=== PATIENT | female | born 1975 | race African-American/Black ===

== ENCOUNTER 2017-04-08 00:32 | Emergency (ER) | END 2017-04-08 03:40 | disposition home or self-care (01) ==

== ENCOUNTER 2018-08-15 18:50 | Emergency (ER) | payer OTHER ==
[~2018-08-15] VITALS: Wt 68.1 kg
[~2018-08-15 18:50] MED LIST: AMOX1TAB10 PO; IBUP-1542 PO
[2018-08-15 19:25] VITALS: BP 128/75; PULSE 75; RESP 18
[2018-08-15] MEDS ORDERED: IBUPROFEN 600 MG TAB PO ONE (20:30)
[2018-08-15] MEDS ORDERED: IBUP-1542 PO (21:55)
--- NOTE | 2018-08-15 22:00 | ERD ---
ER Documentation Chief Complaint Chief Complaint L ANKLE PAIN S/P TRIP TODAY HPI Patient is a 43-year-old female presents the ER for concerns of left ankle pain after she tripped earlier today. Patient states she was going down the stairs when she rolled her ankle. Patient denies head injury. Patient denies any p revious fractures or dislocations to the affected extremity. ROS All systems reviewed and are negative except as per history of present illness. Medications Home Meds Active Scripts Ibuprofen* (Motrin*) 600 Mg Tab, 600 MG PO Q6, #30 TAB Prov:JUANIS CRABTREE PA-C 08/15/18 Ibuprofen* (Motrin*) 600 Mg Tab, 600 MG PO Q6H PRN for PAIN AND OR ELEVATED TEMP, #30 TAB Prov:SHAWN MILLER NP 04/08/17 Amoxicillin/Potassium Clav (Amox-Clav 875-125 mg Tablet) 875-125 mg Tab, 1 TAB PO BID for 10 Days, #20 TAB Prov:SHAWN MILLER NP 04/08/17 Allergies Allergies: Coded Allergies: No Known Allergy (Unverified Allergy, Unknown, 04/17/06) PMhx/Soc History of Surgery: No Anesthesia Reaction: No Hx Neurological Disorder: No Hx Respiratory Disorders: No Hx Cardiac Disorders: No Hx Psychiatric Problems: No Hx Miscellaneous Medical Probl: No Hx Alcohol Use: No Hx Substance Use: No Hx Tobacco Use: No Smoking Status: Never smoker FmHx Family History: No diabetes Physical Exam Vitals Vital Signs Date Temp Pulse Resp B/P (MAP) Pulse Ox O2 O2 Flow FiO2 Time Delivery Rate 08/15/18 99.0 75 18 128/75 100 19:25 (92) Physical Exam GENERAL: Well-developed, well-nourished female. Appears in no acute distress. HEAD: Normocephalic, atraumatic. EYES: Pupils are equally reactive bilaterally. EOMs grossly intact. No conjunctival erythema. ENT: Moist mucous membranes. No uvula deviation. No kissing tonsils. NECK: Supple. No meningismus. Normal range of motion of the neck. LUNG: Clear to auscultation bilaterally. No rhonchi, wheezing, rales or coarse breath sounds. HEART: Regular rate and rhythm. No murmurs, rubs or gallops. EXTREMITIES: Equal pulses bilaterally. No peripheral clubbing, cyanosis or edema. No unilateral leg swelling. NEUROLOGIC: Alert and oriented. Moving all four extremities without any di fficulty. Normal speech. SKIN: Normal color. Warm and dry. No rashes or lesions. LLE: No deformity, erythema, ecchymosis. Mild swelling noted to the lateral ankle and lateral foot. Skin intact. Decreased range of motion of ankle secondary to pain. Sensation intact to light touch. Neurovascularly intact. (Able to plantarflex, dorsiflex, ramya foot, invert foot, raise big toe.) 2+ DP and DT pulses. Results 24 hrs Current Medications Medications Dose Sig/Zeferino Start Time Status Last (Trade) Ordered Route PRN Stop Time Admin Dose Reason Admin Ibuprofen 600 mg ONCE ONCE 08/15/18 DC 08/15/18 (Motrin) PO 20:30 20:11 08/15/18 20:31 Procedures/MDM ED COURSE: The patient was stable throughout ED course. I kept the patient and/or family informed of laboratory and diagnostic imaging results throughout the ED course. DIAGNOSTIC IMAGING: Read by radiologist. Patient: HARLAN ABEL : 1975 Age: 43 Sex: F MR #: [id number] DOS: 08/15/182007 Ordering MD: JUANIS CRABTREE PA-C Location: [facility] Room/Bed: PROCEDURE: XR Ankle. CLINICAL INDICATION: Pain TECHNIQUE: AP, oblique and lateral views of the left ankle were performed. COMPARISON: None. FINDINGS: There is normal mineralization and alignment. No acute fracture or osseous lesion is identified. The joints are normal. There is a small posterior calcaneal spur. The soft tissues are unremarkable. RPTAT: AA IMPRESSION: Small posterior calcaneal spur. No acute fracture. .Madhav Rendon MD, MD Date Time Electronically viewed and signed by .Madhav Rendon MD, on 08/15/2018 21:23 .S/ CC: JUANIS CRABTREE PA-C [id number] Patient: HARLAN ABEL : 1975 Age: 43 Sex: F [id number]: 08/15/182007 Ordering MD: JUANIS CRABTREE PA-C Location: [facility] Room/Bed: PROCEDURE: XR Foot. CLINICAL INDICATION: Pain TECHNIQUE: AP, lateral and oblique views of the left foot was obtained. The images were reviewed on a PACS workstation. COMPARISON: None. FINDINGS: The bones of the foot appear intact, with no evidence of fracture, dislocation, or subluxation. The joint spaces are preserved. The bone mineralization is normal. No significant soft tissue swelling is seen. There is a small posterior calcaneal spur. There is a tiny calcification inferior to the distal aspect of the calcaneus which likely represents calcification in the soft tissues. RPTAT: AA IMPRESSION: Small posterior calcaneal spur. Linear calcification in the soft tissues adjacent to the inferior aspect of the distal calcaneus. No acute fracture. .Madhav Rendon MD MD Date Time Electronically viewed and signed by .Madhav Rendon MD, MD on 08/15/2018 21:25 .S/ CC: JUANIS CRABTREE PA-C [id number] PROCEDURES: SPLINT APPLICATION: The patient was verbally consented at bedside prior to splint application. Patient was explained the risks, benefits and alternatives to this procedure. The patient was neurovascularly intact prior to and status post application of the splint. The patient tolerated the procedure well with no complications. Splint type: JERICHO wrap Extremity: left Indication: ankle sprain MEDICATIONS GIVEN: Ibuprofen Patient tolerated medication well with no adverse reactions. Patient reported improvement in pain. MEDICAL DECISION MAKING: This is a 43-year-old female presents the ER for concerns of left ankle and foot pain after twisting her ankle earlier today while going downstairs. Vital signs were reviewed. Patient was afebrile. X-ray imaging was negative for fracture or dislocation. Calcaneal heel spur was noted. Patient was given Jericho wrap for comfort measures. RICE therapy discussed.\ At this time for the patient likely has an ankle sprain. Low suspicion for ankle dislocation, ankle fracture, tibia fracture, fibula fracture, tibial plateau fracture, Maisonneuve fracture, foot fracture, osteomyelitis, septic joint, gout, osteoarthritis, DVT, compartment syndrome or ankle sprain. At this time, unable to rule out any tendon and ligament injuries. PRESCRIPTIONS: Ibuprofen DISCHARGE: At this time, patient is stable for discharge and outpatient management. RICE therapy and ROM exercises were advised to avoid stiffness. I have instructed the patient to follow-up with his/her primary care physician in 1-2 days. 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 I have instructed the patient to promptly return to the ER for any new or worsening symptoms including increased pain, swelling, redness, warmth or fever. The patient and/or family expressed understanding of and agreement with this plan. All questions were answered. Home care instructions were provided. Patient's blood pressure was elevated (>120/80) but appears stable without evidence of hypertensive emergency, hypertensive urgency or end-organ failure. I had discussion with the patient about the risks of hypertension. I have advised the patient to follow up with his/her primary care physician for outpatient monitoring and treatment for hypertension in 2-3 days. I have instructed the pat ient to return to the ER for any new or worsening symptoms including chest pain, shortness of breath, headache, blurred vision, confusion, nausea, vomiting or LOC. Disclaimer: Inadvertent spelling and grammatical errors are likely due to EHR/dictation software use and do not reflect on the overall quality of patient care. Also, please note that the electronic time recorded on this note does not necessarily reflect the actual time of the patient encounter. Departure Diagnosis: Primary Impression: Calcaneal spur of left foot Additional Impression: Ankle pain Chronicity: acute Laterality: left Qualified Codes: M25.572 - Pain in left ankle and joints of left foot Condition: Fair Patient Instructions: Sprain, Ankle, With X-Ray Referrals: [facility] YOU HAVE RECEIVED A MEDICAL SCREENING EXAM AND THE RESULTS INDICATE THAT YOU DO NOT HAVE A CONDITION THAT REQUIRES URGENT TREATMENT IN THE EMERGENCY DEPARTMENT. FURTHER EVALUATION AND TREATMENT OF YOUR CONDITION CAN WAIT UNTIL YOU ARE SEEN IN YOUR DOCTORS OFFICE WITHIN THE NEXT 1-2 DAYS. IT IS YOUR RESPONSIBILITY TO MAKE AN APPOINTMENT FOR FOLOW-UP CARE. IF YOU HAVE A PRIMARY DOCTOR --you should call your primary doctor and schedule an appointment IF YOU DO NOT HAVE A PRIMARY DOCTOR YOU CAN CALL OUR PHYSICIAN REFERRAL HOTLINE AT IF YOU CAN NOT AFFORD TO SEE A PHYSICIAN YOU CAN CHOSE FROM THE FOLLOWING [facility] [address] [facility] [address] [facility] [address] [facility] [address] [facility] [address] [facility] [facility] [address] [facility]. [facility] YOU HAVE RECEIVED A MEDICAL SCREENING EXAM AND THE RESULTS INDICATE THAT YOU DO NOT HAVE A CONDITION THAT REQUIRES URGENT TREATMENT IN THE EMERGENCY DEPARTMENT. FURTHER EVALUATION AND TREATMENT OF YOUR CONDITION CAN WAIT UNTIL YOU ARE SEEN IN YOUR DOCTORS OFFICE WITHIN THE NEXT 1-2 DAYS. IT IS YOUR RESPONSIBILITY TO MAKE AN APPOINTMENT FOR FOLOW-UP CARE. IF YOU HAVE A PRIMARY DOCTOR --you should call your primary doctor and schedule and appointment IF YOU DO NOT HAVE A PRIMARY DOCTOR YOU CAN CALL OUR PHYSICIAN REFERRAL HOTLINE AT . IF YOU CAN NOT AFFORD TO SEE A PHYSICIAN YOU CAN CHOSE FROM THE FOLLOWING [facility] INSTITUTIONS: [facility] [id number] [place] [address] [facility] [address] [place] [address] [facility] + [facility] [address] [place] [address] Additional Instructions: Call your primary care doctor TOMORROW for an appointment during the next 1-2 days.See the doctor sooner or return here if your condition worsens before your appointment time. JUANIS CRABTREE PA-C August 15, 2018 22:00
== END 2018-08-15 22:17 | disposition home or self-care (01) ==
LOC: FTE 18:50
DX: M77.32 Calcaneal spur, left foot (principal)
CPT/HCPCS: 73610; 73630; Z7502; Z7610